=== PATIENT | female | born 1970 | race Caucasian/White ===

== ENCOUNTER 2016-07-03 20:06 | Emergency (ER) | payer MEDICAID ==
[2016-07-03] MEDS ORDERED: DUONEB INH ONE (23:51)
[2016-07-04] MEDS ORDERED: DEXAMETHASONE 4 MG/ML VIAL ONE (00:03)
== END 2016-07-04 01:34 | disposition home or self-care (01) ==
LOC: ER 20:06
CPT/HCPCS: 36415; 71020; 80053; 85025; 93005; 94640; 96374

== ENCOUNTER 2016-07-15 12:30 | Emergency (ER) | payer MEDICAID ==
[2016-07-15] MEDS ORDERED: KETOROLAC 60 MG/2 ML VIAL IM ONE (14:23)
[2016-07-15] MEDS ORDERED: CYCLOBENZAPRINE 10 MG TAB ONE (14:23)
== END 2016-07-15 14:56 | disposition home or self-care (01) ==
LOC: ER 12:30
DX: M43.14 Spondylolisthesis, thoracic region (principal); M43.16 Spondylolisthesis, lumbar region; M51.34 Other intervertebral disc degeneration, thoracic region; M51.36 Other intervertebral disc degeneration, lumbar region
CPT/HCPCS: 72072; 72100; 96372